=== PATIENT | male | born 1955 | race Caucasian/White ===

== ENCOUNTER 2016-10-16 17:12 | Emergency (ER) | payer OTHER, MEDICAID ==
[2016-10-16 17:40] VITALS: BP 137/104; PULSE 75; RESP 16; TEMP 98.2; O2SAT 97
[2016-10-16] MEDS ORDERED: OXYCODONE/APAP 5/325MG PREPACK#4 BTL TAKEHOME ONE ×2 (17:50→18:04)
--- NOTE | 2016-10-16 17:54 | UCPHY ---
H & P Patient Type: Established Chief Complaint Nursing Narrative: mid to lower back [id number] up a few days ago. Time Seen by Provider: 10/16/16 17:51 HPI/ROS: HPI: 61-year-old male presents to urgent care with chief concern back pain. Reports mid to low bilateral chronic back pain ongoing for many years. It flared up a few days ago. He denies recent trauma. He denies fever, chills, URI symptoms, shortness of breath, chest pain, abdominal pain, nausea, vomiting , diarrhea, urinary symptoms, flank pain, recent unexplained weight loss, hematuria, or trauma. No weakness, numbness, or tingling of his lower extremities. Patient at [facility]. ROS:10 point review of systems is negative other than as stated in HPI Source: Patient Exam Limitations: No limitations - Personal History Current Tetanus Diphtheria and Acellular Pertussis (TDAP): Yes Tetanus Vaccine Date: 2007 - Medical/Surgical History Hx Asthma: Yes Hx Chronic Respiratory Disease: Yes Hx Diabetes: Yes Hx Cardiac Disease: No Hx Renal Disease: No Hx Cirrhosis: No Hx Alcoholism: No Hx HIV/AIDS: No Hx Splenectomy or Spleen Trauma: No Other PMH: MS, USE TO HAVE HEP C , BIPOLAR I, DIABETES, COPD. KNEE SURG BILAT MULT TIMES, COREY, ARTHRITIS, HYPERTENSION - Family History Significant Family History: No pertinent family hx - Social History Smoking Status: Former smoker Alcohol Use: None Drug Use: None - Physical Exam Exam: Vitals stable, reviewed by me Constitutional: Alert, calm, cooperative. No acute distress. HEENT: Head normocephalic. PERRLA, EOMI. No pallor or injection. TMs pearly- waggoner without bulging or retraction. Nasal mucosa pink and moist. Pharynx without redness or evidence of tonsillar exudates. Neck: Supple, nontender. No midline tenderness, no meningismus Respiratory: Breathing unlabored. Lungs clear to auscultation bilaterally. Cardiovascular: Heart rate regular. S1-S2. DP/PT pulses 2+ bilaterally. Gastrointestinal: Abdomen soft, nontender. Bowel sounds normoactive x4 quadrants. : No suprapubic tenderness or CVA tenderness. Neuro: Patellar and Achilles DTRs 2+ bilaterally. Strength 5+ in all extremities. No point tenderness to palpation of thoracic or lumbar spine. Left and right paraspinous muscles without tenderness to palpation. No evidence of radiculopathy on straight leg raise bilaterally. Sensation intact to soft and pinprick in all regions of both legs and feet bilaterally. Musculoskeletal: Range of motion inhibited to forward flexion only. Constitutional: Initial Vital Signs Temperature (C) 36.8 C 10/16/16 17:37 Heart Rate 75 10/16/16 17:37 Respiratory Rate 16 10/16/16 17:37 Blood Pressure 137/104 H 10/16/16 17:37 O2 Sat (%) 97 10/16/16 17:37 O2 Delivery Mode Room Air Allergies/Adverse Reactions: penicillin V potassium [From Pen-Vee K] Allergy (Severe, Verified 10/16/16 17:34 ) Home Medications: Medication Instructions Recorded Glipizide [Glipizide 5 mg (RX)] 5 mg PO DAILY 09/08/12 Lisinopril/Hydrochlorothiazide 1 each PO 09/08/12 [Lisinopril-Hctz 20-25 mg Tab] lamoTRIgine [LamICTAL 100 MG (RX)] 09/08/12 Amlodipine Besylate 08/22/15 Albuterol 10/16/16 HCTZ (*) 10/16/16 oxyCODONE/APAP 5/325 [Percocet 1 - 2 tab PO Q6H PRN #8 tab 10/16/16 5/325 (*)] Medical Decision Making ED Course/Re-evaluation: This patient has ongoing chronic back pain. He is on chronic narcotic medication. He has a history of MS as well as arthritis. He is a patient at [facility]. PD MP search performed. I am aware of this patient's narcotic use. He has been counseled regarding the in appropriate use of ER/Urgent Care for his back pain. He has been counseled to make an appointment with primary care at [facility]. He agrees to do so. He has no red flag warning signs. Differential Diagnosis: Chronic back pain, UTI, compression fracture, CA, malingering Departure - Departure Disposition: Home, Routine, Self-Care Clinical Impression: Chronic low back pain Qualifiers: Back pain laterality: bilateral Sciatica presence: without sciatica Qualifier Code: (M54.5) Low back pain Condition: Good Instructions: Chronic Back Pain (ED) Additional Instructions: Plan: 400 mg ibuprofen every 6 hours with food for the next 2-3 days Alternate ice and heat to back For severe pain, you may use 1 Percocet every 4 hours as needed--Never drink or drive while taking this medication. This medication impairs decision making capacity so do not work or sign important documents while taking. This medication its constipating so drink plenty of fluids and consider an over-the- counter stool softener such as docusate sodium (Colace) while taking this medication. This medication has addictive properties. You should use the least amount for the shortest amount of time. [facility] ED and [facility] do not refill narcotic pain medication prescriptions. This is a hospital policy. You will need to follow up as indicated for recheck for further narcotic refills. As discussed, you need to see your primary care provider for ongoing chronic pain management. The urgent care/ER setting is not the place to have your chronic back pain managed. At [facility], we do not refill narcotic medication. Please see primary care Follow up with primary care at [facility] within the next- 1-2 days for recheck without fail-When you call to schedule appointment, please let the office know you are an "ER follow up" appointment" Referrals: NONE *PRIMARY CARE P,. [Primary Care Provider] - [facility] Instructions [facility] - As per Instructions Prescriptions: oxyCODONE/APAP 5/325 [Percocet 5/325 (*)] 1 - 2 tab PO Q6H PRN #8 tab PRN Reason: Pain, Severe - PQRS PQRS Measurement: Not applicable
== END 2016-10-16 18:04 | disposition home or self-care (01) ==
LOC: CED 17:12
DX: M54.5 Low back pain (principal); Z79.891 Long term (current) use of opiate analgesic; G35 Multiple sclerosis; M19.90 Unspecified osteoarthritis, unspecified site
CPT/HCPCS: 99214-PO; G0463-PO

== ENCOUNTER 2016-11-15 10:15 | Emergency (ER) | payer OTHER, MEDICAID ==
[2016-11-15 10:53] VITALS: BP 140/88; PULSE 80; RESP 20; TEMP 98.1; O2SAT 97
--- NOTE | 2016-11-15 11:39 | UCPHY ---
H & P Time Seen by Provider: 11/15/16 10:49 Patient Type: Established HPI/ROS: This patient presents with chronic lumbar paraspinous pain of moderate intensity and chronic knee pain left more than right. He is seen intermittently at [facility] in the past but is been unable to get in recently. He also sees a mid-level practitioner local clinic at times. He has received small numbers of Percocet from this clinic in recent months. [facility] this [facility]. He denies any acute injuries but reports ongoing moderate pain. The low back pain worsens with certain movements. No other exacerbating factors. He does take ibuprofen with partial relief. ROS: He denies any recent fevers chills or other constitutional symptoms. HEENT : No complaints. Cardiopulmonary: No complaints he has no belly pain associated with this. He has chronic mild paresthesias he attributes to peripheral neuropathy from his diabetes. No new neuro symptoms. No bowel or bladder incontinence. He denies any new knee swelling. No new knee trauma. 10 point ROS is otherwise negative Past Medical/Surgical History: Chronic back pain Chronic knee pain-history of multiple arthroscopic surgeries bilateral knees Smoking Status: Former smoker Physical Exam: General Appearance: Alert, no distress. Eyes: Pupils equal and round no pallor or injection. ENT, Mouth: Mucous membranes moist. Respiratory: There are no retractions, lungs are clear to auscultation. Cardiovascular: Regular rate and rhythm. Gastrointestinal: Abdomen is soft and nontender, no pulsatile masses. bowel sounds normal. Neurological: Alert. Patient maintains normal light touch sensory exam bilateral lower extremities. No saddle anesthesia. He maintains 5/5 strength in great toe dorsiflexion plantar flexion bilaterally. He maintains 2+ symmetric patellar and Achilles DTRs bilaterally. Straight leg raise is borderline positive on the left at 20 and negative on the right Back: No midline tenderness. He has right paraspinous muscular tenderness with mild Skin: Warm and dry, no rashes. Musculoskeletal: Neck is supple nontender. Extremities: Atraumatic normal except for left knee Left knee: Patient has minimal swelling circumferentially with no erythema or warmth to touch no laxity on ligamentous stress testing.. Psychiatric: Mood and affect normal DIFFERENTIAL DIAGNOSIS: After history and physical exam differential diagnosis was considered for low back strain, degenerative disc disease, no active radiculopathy, focal deficits or evidence of cauda equina. Doubt spinal abscess , related to the knee, osteoarthritis, no evidence of acute ligamentous injury Constitutional: Initial Vital Signs Temperature (C) 36.7 C 11/15/16 10:50 Heart Rate 80 11/15/16 10:50 Respiratory Rate 20 11/15/16 10:50 Blood Pressure 140/88 H 11/15/16 10:50 O2 Sat (%) 97 11/15/16 10:50 O2 Delivery Mode Room Air Allergies/Adverse Reactions: penicillin V potassium [From Pen-Vee K] Allergy (Severe, Verified 11/15/16 10:40 ) Home Medications: Medication Instructions Recorded FLUOXETINE HCL 11/15/16 Glipizide 11/15/16 Lamictal 11/15/16 Lisinopril/Hydrochlorothiazide 11/15/16 Metformin HCl 11/15/16 Methocarbamol [Robaxin 750 mg (*)] 750 - 1,500 mg PO QID PRN #30 tab 11/15/16 amLODIPine BESYLATE 11/15/16 MDM/Departure - [facility] ED Course/Re-evaluation: I demonstrated some stretches for the patient for his low back suggest a nonsedating muscle relaxant in NSAIDs with follow-up with primary care physician to establish a regular primary locally. I provided the automotive professional physician-Dr. Davis as an outpatient follow-up. I counseled him against being on opiate narcotics for his chronic pain. - Depart Disposition: Home, Routine, Self-Care Clinical Impression: Chronic pain of left knee Chronic low back pain Qualifiers: Back pain laterality: bilateral Sciatica presence: without sciatica Qualified Code(s): M54.5 - Low back pain Condition: Good Instructions: Chronic Back Pain (ED) Additional Instructions: DX: Low back pain 2. chronic knee pain Plan: Ibuprofen 400-600 mg per 6 hours regularly for the next week then as needed. Methocarbamol muscle relaxants as needed. Tylenol in addition as needed for pain. Starts daily stretches prior to taking muscle relaxant in the morning. 3-5 minutes each of: "Butterfly stretch," "Sphinx stretch", "pigeon stretch", and hamstring stretch. Avoid lifting more than 5-10 pounds until symptoms improve. Call your primary care physician ( or Dr. Davis - our on-call primary MD [id number], [place] [address] ) for a followup appointment in 3-7 days. Go to the emergency department for worsening of your symptoms despite the treatment plan. Prescriptions: Methocarbamol [Robaxin 750 mg (*)] 750 - 1,500 mg PO QID PRN #30 tab PRN Reason: Muscle Spasms Referrals: NONE *PRIMARY CARE P,. [Primary Care Provider] - As per Instructions - PQRS PQRS Measurement: NA
== END 2016-11-15 11:51 | disposition home or self-care (01) ==
LOC: CED 10:15
DX: M54.5 Low back pain (principal); M25.562 Pain in left knee
CPT/HCPCS: 99214-PO; G0463-PO

== ENCOUNTER 2017-08-22 17:24 | Emergency (ER) | payer OTHER, MEDICAID ==
[2017-08-22 17:44] VITALS: BP 118/96; PULSE 80; RESP 16; TEMP 97.7; O2SAT 95
--- NOTE | 2017-08-22 17:48 | EDPHY ---
H & P Time Seen by Provider: 08/22/17 17:41 HPI/ROS: CHIEF COMPLAINT: Neuropathy pain HISTORY OF PRESENT ILLNESS: Patient is a 62-year-old male with a history of diabetic neuropathy. The patient normally takes gabapentin 400 mg twice daily. He ran out of his prescription. He attempted to get a hold of his primary care physician today but was unable. He is leaving to drive to [place] for [employer]. He will be that tell 09/21/2017. He states his pain is consistent with his old pain. He has no new redness or swelling. No fevers or chills. No new numbness or weakness. REVIEW OF SYSTEMS: My complete review of systems is negative except as mentioned in the HPI. Past Medical/Surgical History: Includes diabetes, peripheral neuropathy Smoking Status: Former smoker Physical Exam: Vitals noted GENERAL: Well-appearing, in no acute distress, alert. HEENT: Eyes normal to inspection, normal pharynx, no signs of dehydration. NECK: No thyromegaly, no lymphadenopathy, supple. RESPIRATORY: Clear to auscultation bilaterally, no rales, rhonchi or wheezing. CVS: Regular rate and rhythm, no rubs, murmurs, or gallops. ABDOMEN: Soft, nontender, nondistended, no organomegaly. BACK: Normal to inspection, no CVA tenderness. SKIN: Normal color, no rash, warm, dry. No pallor. EXTREMITIES: No pedal edema, no calf tenderness, no Homans sign or cords, no joint swelling. Normal appearing. NEURO/PSYCH: Alert and oriented x3, normal mood and affect, normal motor sensory exam. No obvious cranial nerve deficit. Constitutional: Initial Vital Signs Temperature (C) 36.5 C 08/22/17 17:39 Heart Rate 80 08/22/17 17:39 Respiratory Rate 16 08/22/17 17:39 Blood Pressure 118/96 H 08/22/17 17:39 O2 Sat (%) 95 08/22/17 17:39 O2 Delivery Mode Room Air Allergies/Adverse Reactions: penicillin V potassium [From Pen-Vee K] Allergy (Severe, Verified 11/15/16 10:40 ) Home Medications: Medication Instructions Recorded FLUOXETINE HCL 11/15/16 Glipizide 11/15/16 Lamictal 11/15/16 Lisinopril/Hydrochlorothiazide 11/15/16 Metformin HCl 11/15/16 Methocarbamol [Robaxin 750 mg (*)] 750 - 1,500 mg PO QID PRN #30 tab 11/15/16 amLODIPine BESYLATE 11/15/16 Medical Decision Making ED Course/Re-evaluation: In the emergency department I discussed the plan with the patient. I answered all his questions. Patient will be given gabapentin 400 mg twice daily times 10 days. He will call his primary care physician, Dr. Byrd, to get the remainder of his prescription. Patient was given warnings prior to leaving. He will return with worsening symptoms. Differential Diagnosis: My differential includes but is not limited to diabetic neuropathy, cellulitis, DVT, arterial occlusion Departure - Departure Disposition: Home, Routine, Self-Care Clinical Impression: Peripheral neuropathy Qualifiers: Peripheral neuropathy type: polyneuropathy, unspecified Qualified Code(s): G62.9 - Polyneuropathy, unspecified Condition: Good Instructions: Peripheral Neuropathy (ED) Additional Instructions: Return with increasing pain, redness, fever or any other concerns Referrals: Bakari Powers MD [Primary Care Provider] - 2-3 days without fail
== END 2017-08-22 17:50 | disposition home or self-care (01) ==
LOC: CED 17:24
DX: G62.9 Polyneuropathy, unspecified (principal); E11.9 Type 2 diabetes mellitus without complications; Z79.84 Long term (current) use of oral hypoglycemic drugs; Z87.891 Personal history of nicotine dependence

== ENCOUNTER 2019-03-08 10:39 | Emergency (ER) | payer OTHER, MEDICAID | END 2019-03-08 14:05 | disposition home or self-care (01) | LOC: CED 10:39 ==